=== PATIENT | male | born 1945 | race American Indian/Alaskan Native ===

== ENCOUNTER 2020-10-24 05:43 | Day surgery (SDC) | payer MEDICARE ==
[2020-10-24] MEDS ORDERED: LACTATED RINGERS 1,000 ML IV SCH (06:00)
[2020-10-24] MEDS ORDERED: BACTERIOSTATIC SODIUM CHLORIDE 0.9% 30 ML VIAL INFILTRATI ONE (06:48)
[2020-10-24] MEDS ORDERED: LIDOCAINE MPF (2%) 20 MG/1 ML VIAL 5 ML ONE (07:20)
[2020-10-24] MEDS ORDERED: ONDANSETRON 4 MG/2 ML INJ ONE (07:20)
[2020-10-24] MEDS ORDERED: propofoL 200 MG/20 ML VIAL IV ONE ×2 (07:20→08:22)
[2020-10-24] MEDS ORDERED: fentaNYL 100 MCG/2 ML INJ ONE (07:20)
[2020-10-24 07:29] LABS: INR 1.04 (0.87-1.13)
[2020-10-24 07:30] LABS: Partial Thromboplastin Time 25.1 Sec. (24.2-36.6)
--- NOTE | 2020-10-24 07:36 | Anesthesia Consultation ---
Anesthesia Consult and Med Hx Date of service: 10/24/20 - Airway Anesthetic Teeth Evaluation: Dentures ROM Head & Neck: Adequate Mental/Hyoid Distance: Adequate Mallampati Class: Class II Intubation Access Assessment: Possibly Difficult - Pre-Operative Health Status ASA Pre-Surgery Classification: ASA3 Proposed Anesthetic Plan: General - Pulmonary Hx Smoking: Yes (quit >30yrs ago) Hx Respiratory Symptoms: No Hx Sleep Apnea: No (PAULETTE PRE SCREEN HIGH RISK) - Cardiovascular System Hx Hypertension: Yes (took antihypertensives) Hx Heart Attack/AMI: No Hx Cardia Arrhythmia: Yes (off xarelto since 10/21/20) Hx Pacemaker: No Hx Internal Defibrillator: No - Central Nervous System CVA: No - Endocrine Hx Renal Disease: No Hx Liver Disease: No Hx Insulin Dependent Diabetes: Yes Hx Thyroid Disease: No - Other Systems Hx Cancer: Yes (hx prostate ca) Hx Obesity: Yes (BMI 44) - Additional Comments Anesthesia Medical History Comments: No hx anesthetic complications.
--- NOTE | 2020-10-24 07:37 | Anesthesia Day of Surgery ---
Anesthesia Day of Surgery - Day of Surgery Patient Examined: Yes Patient H&P Reviewed: Yes Patient is NPO: Yes Beta Blockers: Yes
[2020-10-24] MEDS ORDERED: ePHEDrine SULFATE 50 MG/1 ML INJ ONE (08:09)
[2020-10-24] MEDS ORDERED: WATER FOR IRRIG STERILE 2000 ML IR ONE (08:38)
[2020-10-24] MEDS ORDERED: IOHEXOL 300 MG/ML 50ML IV ONE (08:38)
[2020-10-24] MEDS ORDERED: PHENYLEPHRINE/NS 1,000 MCG/10 ML SYRINGE (OR USE) IV ONE (08:54)
[2020-10-24] MEDS ORDERED: WATER FOR IRRIG STERILE 1,500 ML BOTTLE IR ONE (09:03)
--- NOTE | 2020-10-24 09:17 | Short Stay Summary ---
Short Stay Documentation Date of service: 10/24/20 - History H&P: obtained from office - Allergies and Medications Current Medications: Allergies No Known Allergies Allergy (Unverified 10/11/20 12:03) Home Medications Medication Instructions Recorded Confirmed Last Taken Type Famotidine [Pepcid] 40 mg PO BID 10/11/20 10/11/20 10/23/20 History Glimepiride [Amaryl] 4 mg PO DAILY 10/11/20 10/11/20 10/23/20 History Insulin Glargine,Hum.rec.anlog 1 dose SQ HS 10/11/20 10/11/20 10/23/20 History [Lantus Solostar] Pantoprazole [Protonix] 40 mg PO QDAY 10/11/20 10/11/20 10/23/20 History Rivaroxaban [Xarelto] 20 mg PO QDAY 10/11/20 10/24/20 4 Days Ago History ~10/20/20 Sulfamethoxazole 1 tab PO Q12HR 10/11/20 10/11/20 10/23/20 History Tamsulosin [Flomax] 0.4 mg PO QDAY 10/11/20 10/11/20 10/23/20 History amLODIPine [Norvasc] 10 mg PO DAILY 10/11/20 10/11/20 10/24/20 04:20 History carvediloL [Coreg] 12.5 mg PO BID 10/11/20 10/11/20 10/24/20 04:20 History Active Medications Lactated Ringer's (Lactated Ringers) 1,000 mls @ 100 mls/hr IV DIRECT CHANNING Stop: 10/24/20 23:59 Cefazolin Sodium 3 gm/ Sodium (Chloride) 100 mls @ 100 mls/30 min IV PREOP NR; Protocol Stop: 10/24/20 18:00 - Brief post op/procedure progress note Date of procedure: 10/24/20 Pre-op diagnosis: rt staghorn stone, BPH Post-op diagnosis: same Procedure: CYSTO, URETHRAL DILATION, RT RPG, STENT WITH EXTERNAL STRING , REZUM OF PROSTATE, RT ESWL Anesthesia: GETA Surgeon: BERNADETTE GONZALEZ Estimated blood loss: none Condition: stable - Hospital course Hospital course: HIRAL CHATMAN, POST OP INFO ON CHART - Disposition Condition at discharge: Stable Disposition: 01 HOME / SELF CARE / HOMELESS Short Stay Discharge Plan Follow up with: [facility] MD REBECCA [Primary Care Provider] - 7 Days
[2020-10-24] MEDS ORDERED: HYDROmorphone 1 MG/1 ML INJ ONE (09:43)
[2020-10-24] MEDS ORDERED: HYDROmorphone 1 MG/1 ML INJ IV PRN ×2 (09:45)
[2020-10-24] MEDS ORDERED: ONDANSETRON 4 MG/2 ML INJ IV PRN (09:45)
--- NOTE | 2020-10-24 11:26 | Operative Report ---
DATE OF SURGERY: 10/24/2020 PREOPERATIVE DIAGNOSES: Right staghorn calculus, BPH, prostate cancer. POSTOPERATIVE DIAGNOSES: Right staghorn calculus, BPH, prostate cancer. Urethral stricture. PROCEDURE PERFORMED: Cystoscopy, right retrograde pyelogram, double-J stent placement (6-Danish 26 cm with an external string, urethral dilation, Rezum vapor therapy of the prostate, right extracorporal shockwave lithotripsy. This is a staged procedure. SURGEON: Logan Lala MD ANESTHESIA: General. ESTIMATED BLOOD LOSS: Minimal. FLUIDS: Crystalloid. COMPLICATIONS: No complications. INDICATIONS FOR PROCEDURE: This patient is a 75-year-old gentleman known to our service with a long history of kidney stones and has been noncompliant. He has had worsening of his symptoms with recurrent urinary tract infections. He has been seen by Dr. Marquez. Now, he is with his daughter, and after long discussion presents now for surgical intervention. His hog killer is Dr. Sommer at [place]. DESCRIPTION OF PROCEDURE: The patient was taken to the operative suite, placed in the supine position. After adequate general anesthesia, placed in the dorsal lithotomy position, prepped and draped in a sterile fashion. Pancystourethroscopy was performed with a 22-Danish Storz cystoscope. Obvious bulbar stricture tight. A 0.035 Glidewire was placed in the bladder under fluoroscopic guidance. Urethral dilatation to 22-Danish with a balloon dilator was performed without difficulty. The wire was left in place. Cystoscopy was performed. Prostate displayed mild trilobar obstruction. Bladder - no tumors or stones were noted. Right retrograde pyelogram was obtained with an 8-Danish [place] catheter and 8 mL of contrast; large staghorn calculus with approximately 10 segments of 1 cm or more. A 6-Danish 26 cm double-J stent with an external string was left indwelling. Next, using the [employer] Rezum device, 4 sticks were placed for treatments of Rezum, 2 on the lateral lobes bilaterally. At that point, an 18-Danish [place]tip catheter was advanced over the wire into the bladder. Clear urine. Rectal exam was benign. He was placed in a supine position at that point. The stone was localized at the renal pelvis. Extracorporal shock wave lithotripsy was administered with a maximum kV of 4 and 2500 shocks. A 5-minute renal pause after 200 shocks was performed. The patient tolerated the procedure well and was extubated and taken to recovery room and will go home on Bactrim and [place]. We will get his Thrasher out and reassess his treatment for his stone. TID: [id number] RECEIPT: [id number] FELA/PRITI/RONY
[2020-10-24 11:43] VITALS: BP 136/75
--- NOTE | 2020-10-24 12:34 | Post Anesthesia Evaluation ---
- Post Anesthesia Evaluation Patient Participated: Yes Airway Patent: Yes Stable Respiratory Function: Yes Nausea/Vomiting: No Temp > 96.8F: Yes Pain Manageable: Yes Adequeate Hydration: Yes Anesthesia Complications: No
== END 2020-10-24 11:10 | disposition home or self-care (01) ==
LOC: OR 05:43
PROVIDERS: ATTEND Urology
DX: N20.0 Calculus of kidney (principal); N40.1 Benign prostatic hyperplasia with lower urinary tract symptoms; C61 Malignant neoplasm of prostate; I48.91 Unspecified atrial fibrillation; I10 Essential (primary) hypertension; K21.9 Gastro-esophageal reflux disease without esophagitis; Z87.891 Personal history of nicotine dependence; Z79.899 Other long term (current) drug therapy; Z98.890 Other specified postprocedural states
CPT/HCPCS: 36415; 50590; 52332; 53854; 82962; 85610; 85730; A4217; C1726; C1769; C2617; J0690; J1170; J2370; J2405; J2704; J3010; J7120; Q9967

== ENCOUNTER 2021-07-24 09:45 | Day surgery (SDC) | payer MEDICARE ==
[2021-07-21 14:13] LABS: Hematocrit 36.2 % (35.5-45.6); Hemoglobin 11.4 gm/dl (11.8-15.2); Mean Corpuscular HGB Conc 31 % (32-34); Mean Corpuscular Volume 89 fl (84-94); Platelet Count 226 K/mm3 (140-440); Red Blood Count 4.09 M/mm3 (3.65-5.03); Red Cell Distribution Width 16.8 % (13.2-15.2)
[2021-07-21 14:36] LABS: Albumin 3.4 g/dL (3.9-5); Calcium 8.7 mg/dL (8.4-10.2)
--- NOTE | 2021-07-22 11:45 | Anesthesia Consultation ---
Anesthesia Consult and Med Hx Date of service: 07/22/21 - Airway Anesthetic Teeth Evaluation: Dentures, Edentulous ROM Head & Neck: Adequate Mental/Hyoid Distance: Adequate Mallampati Class: Class II Intubation Access Assessment: Good - Pre-Operative Health Status ASA Pre-Surgery Classification: ASA3 Proposed Anesthetic Plan: General - Pulmonary Hx Smoking: Yes (STOPPED 1985) Hx Respiratory Symptoms: No Hx Sleep Apnea: No (PAULETTE PRE SCREEN HIGH RISK) - Cardiovascular System Hx Hypertension: Yes Hx Coronary Artery Disease: Yes (Stents ) Hx Heart Attack/AMI: No Hx Cardia Arrhythmia: Yes Hx Pacemaker: No Hx Internal Defibrillator: No - Central Nervous System CVA: No Hx Back Pain: Yes Hx Psychiatric Problems: No - Gastrointestinal Hx Ulcer: No (S/P Gastric bypass) Hx Gastroesophageal Reflux Disease: Yes - Endocrine Hx Renal Disease: No Hx Liver Disease: No Hx Insulin Dependent Diabetes: Yes Hx Non-Insulin Dependent Diabetes: Yes Hx Thyroid Disease: No - Hematic Hx Anemia: No Hx Sickle Cell Disease: No - Other Systems Hx Alcohol Use: No Hx Substance Use: No Hx Cancer: Yes (hx prostate ca) Hx Obesity: Yes (BMI 42) - Additional Comments Anesthesia Medical History Comments: Was here [id number]. Pt was hyperkalemic-was taking potassium supplements. K 4.6 on [id number] @ [place]. +Med [facility]ance
[~2021-07-24 09:45] MED LIST: SODIUM CHLORIDE 0.9% 1000 ML 1,000 ML IV SCH; ceFAZolin/STERILE WATER 2 GM/20 ML SYRINGE IV NR
[2021-07-24 12:05] LABS: INR 0.99 (0.87-1.13)
[2021-07-24 12:06] LABS: Partial Thromboplastin Time 24.3 Sec. (24.2-36.6)
[2021-07-24] MEDS ORDERED: HYDROmorphone 0.5 MG/0.5 ML INJ IV PRN ×2 (12:57)
[2021-07-24] MEDS ORDERED: ONDANSETRON 4 MG/2 ML INJ IV PRN (12:57)
--- NOTE | 2021-07-24 12:57 | Anesthesia Day of Surgery ---
Anesthesia Day of Surgery - Day of Surgery Patient Examined: Yes Patient H&P Reviewed: Yes Patient is NPO: Yes
[2021-07-24] MEDS ORDERED: MIDAZOLAM 2 MG/2 ML INJ IV NR (13:00)
[2021-07-24] MEDS ORDERED: propofoL 200 MG/20 ML VIAL IV ONE (13:06)
[2021-07-24] MEDS ORDERED: LIDOCAINE MPF (2%) 20 MG/1 ML VIAL 5 ML ONE (13:06)
[2021-07-24] MEDS ORDERED: ePHEDrine SULFATE 50 MG/1 ML INJ ONE (13:20)
[2021-07-24] MEDS ORDERED: WATER FOR IRRIG STERILE 2000 ML IR ONE (15:00)
--- NOTE | 2021-07-24 15:38 | Post Operative Note ---
Date of procedure: 07/24/21 Pre-op diagnosis: r renal stones Post-op diagnosis: same Findings: 15 stones Procedure: r helen cysto r j stent Anesthesia: GETA Surgeon: NIKITA OCONNOR Estimated blood loss: none Pathology: none Condition: stable Disposition: PACU
--- NOTE | 2021-07-24 15:39 | Discharge Summary ---
Short Stay Discharge Plan Activity: other (no straining ) Weight Bearing Status: Full Weight Bearing Diet: low fat, low cholesterol, low salt Durable Medical Equipment Needed Upon Discharge: other (home with billy and j stent ) Follow up with: BOOKERNISULA LATRELL FERNANDEZ MD [Primary Care Provider] - 7 Days NIKITA OCONNOR MD [Staff Physician] - 7 Days Forms: [facility] [place] [facility]
--- NOTE | 2021-07-24 16:34 | Post Anesthesia Evaluation ---
- Post Anesthesia Evaluation Patient Participated: Yes Airway Patent: Yes Stable Respiratory Function: Yes Nausea/Vomiting: No Temp > 96.8F: Yes Pain Manageable: Yes Adequeate Hydration: Yes Anesthesia Complications: No Block Receding Appropriately: Not Applicable Patient on Ventilator: No
[2021-07-24 17:03] VITALS: BP 125/65
--- NOTE | 2021-07-24 17:45 | Operative Report ---
DATE OF SURGERY: 07/24/2021 PREOPERATIVE DIAGNOSES: Large stone burden right kidney, hydronephrosis, right flank pain. POSTOPERATIVE DIAGNOSES: Large stone burden right kidney hydronephrosis, right flank pain. PROCEDURES: Partial lithotripsy followed by cystoscopy, retrograde stent. SURGEON: Dr. Marquez. ANESTHESIA: General. FINDINGS: This is a gentleman with large number of 1 cm stones in his right kidney. He has intermittent pain. He has had lithotripsy before. He now presents for another lithotripsy. DESCRIPTION OF PROCEDURE: The patient was brought to the operating room and placed on the operating table. Following induction of anesthesia, placed over the focal point and stones were easily visualized. We started lithotripsy at 5 kV. We increased to 6. Nothing was happening, I called Dr. Lala. The stone burden is too large and too dense. We stopped the lithotripsy after 1000 shocks and a retrograde showed a prominent renal pelvis filled with stones. According to the CT there seemed to be parenchyma, so we placed a double-J stent and then some of his pain and get a nuclear scan to see the function of that kidney. The urethra was dilated because there was a little narrowing at the membranous urethra. This was done atraumatically. An 18-Councill was easily placed after the stent was placed. The patient tolerated the procedure well and brought to recovery in stable condition. TID: [id number] RECEIPT: [id number] MORENITA/BARBY/LAQUITA
== END 2021-07-24 16:40 | disposition home or self-care (01) ==
LOC: OR 09:45
PROVIDERS: ATTEND Urology
DX: N13.2 Hydronephrosis with renal and ureteral calculous obstruction (principal); I25.10 Atherosclerotic heart disease of native coronary artery without angina pectoris; I42.9 Cardiomyopathy, unspecified; I48.91 Unspecified atrial fibrillation; I10 Essential (primary) hypertension; K21.9 Gastro-esophageal reflux disease without esophagitis; E66.9 Obesity, unspecified; M19.90 Unspecified osteoarthritis, unspecified site; E11.9 Type 2 diabetes mellitus without complications; Z79.899 Other long term (current) drug therapy; Z79.4 Long term (current) use of insulin; Z87.891 Personal history of nicotine dependence; Z95.5 Presence of coronary angioplasty implant and graft; Z85.46 Personal history of malignant neoplasm of prostate; Z98.890 Other specified postprocedural states; Z96.651 Presence of right artificial knee joint; Z20.822 Contact with and (suspected) exposure to COVID-19
CPT/HCPCS: 36415; 50590; 52332; 74420; 80053; 82962; 85027; 85610; 85730; C1726; C1769; C2617; J0690; J2704; J3490; J7030; U0003